=== PATIENT | female | born 1980 | race Caucasian/White ===

== ENCOUNTER 2022-01-14 13:22 | Emergency (ER) | payer OTHER ==
[~2022-01-14] VITALS: Ht 152.4 cm; Wt 92.3 kg
[~2022-01-14 13:22] MED LIST: ASPI81CH49 PO; BACL10TA2 PO; DICY10CA13 PO; DOXY150C3 PO; DUCO5TAB2 PO; MOTR200T44 PO; NEXI40CA PO; TOPA100T12 PO; TRAM50TA2 PO; TYLE325T5 PO; ZANA4TAB PO; ZOFR4TAB14 PO; ZOFR4TAB16 PO
[2022-01-14] MEDS ORDERED: AMOX875T2 (13:35)
[2022-01-14] MEDS ORDERED: EXCETAB33 PO (13:35)
[2022-01-14] MEDS ORDERED: KETOROLAC 30 MG/ML 1ML VIAL IV ONE (16:45)
[2022-01-14] MEDS ORDERED: NS 1,000 ML IV ONE (16:45)
[2022-01-14] MEDS ORDERED: METOCLOPRAMIDE INJ 10MG/2ML VIAL (J2765 PER 1) IV ONE (16:45)
[2022-01-14 17:28] LABS: BASO % 0.4 % (0.0-1.0); EOS # 0.1 10^3/uL (0.0-0.5); EOS % 0.9 % (0.0-3.0); HEMATOCRIT 40.9 % (36.0-47.0); HEMOGLOBIN 12.5 g/dl (12.0-15.5); LYMPH # 2.4 10^3/uL (1.5-5.0); LYMPH % 22.5 % (24.0-44.0); MEAN CORPUSCULAR HEMOGLOBIN 23.6 pg (27.0-33.0); MEAN CORPUSCULAR HGB CONC 30.6 g/dl (32.0-36.5); MEAN CORPUSCULAR VOLUME 77.3 fl (80.0-96.0); MONO # 0.6 10^3/uL (0.0-0.8); MONO % 5.7 % (2.0-8.0); NEUTROPHILS # 7.6 10^3/uL (1.5-8.5); NEUTROPHILS % 69.8 % (36.0-66.0); PLATELET COUNT, AUTOMATED 303 10^3/uL (150-450); RED BLOOD COUNT 5.29 10^6/uL (4.00-5.40); WHITE BLOOD COUNT 10.9 10^3/uL (4.0-10.0)
[2022-01-14 18:01] LABS: ERYTHROCYTE SEDIMENTATION RATE 31 mm/hr (0-20)
[2022-01-14 18:48] LABS: BLOOD UREA NITROGEN 8 MG/DL (7-18); C REACTIVE PROTEIN QUANTITATIV 1.37 MG/DL (0.00-0.30); CALCIUM LEVEL 8.5 MG/DL (8.5-10.1); CARBON DIOXIDE LEVEL 27 MEQ/L (21-32); CHLORIDE LEVEL 110 MEQ/L (98-107); CREATININE FOR GFR 0.59 MG/DL (0.55-1.30); GLOMERULAR FILTRATION RATE > 60.0 (>60); GLUCOSE, FASTING 88 MG/DL (70-100); POTASSIUM SERUM 4.1 MEQ/L (3.5-5.1); SODIUM LEVEL 141 MEQ/L (136-145)
[2022-01-14 18:55] LABS: HCG, SERUM QUALITATIVE NEGATIVE (NEGATIVE)
[2022-01-14] MEDS ORDERED: PSEUDOEPHEDRINE 30 MG TAB PO ONE (19:45)
[2022-01-14] MEDS ORDERED: MEDR4PAK PO (19:48)
[2022-01-14 19:58] VITALS: BP 139/87
== END 2022-01-14 20:23 | disposition home or self-care (01) ==
LOC: M ED 13:22
DX: J32.9 Chronic sinusitis, unspecified (principal); H65.90 Unspecified nonsuppurative otitis media, unspecified ear; G43.909 Migraine, unspecified, not intractable, without status migrainosus; I34.1 Nonrheumatic mitral (valve) prolapse; R56.9 Unspecified convulsions; M79.7 Fibromyalgia; M19.90 Unspecified osteoarthritis, unspecified site; Z88.5 Allergy status to narcotic agent; Z88.8 Allergy status to other drugs, medicaments and biological substances; Z79.899 Other long term (current) drug therapy; Z79.82 Long term (current) use of aspirin
CPT/HCPCS: 80048; 84703; 85025; 85652; 86140; 87798; 87880; 96361; 96374; 96375; 99284; J1885; J2765